=== PATIENT | male | born 1955 | race Caucasian/White ===

== ENCOUNTER 2017-02-16 18:46 | Observation (INO) | payer OTHER ==
[~2017-02-16] VITALS: Ht 177.8 cm; Wt 147.5 kg
[~2017-02-16 18:46] MED LIST: ASPERDRINK81 MG PO; CLONIDINE HCL0.1 MG PO; DIOVAN HCT 3201 EAC1 PO; DIOVAN320 MG PO; IBUPROFEN800 MG PO; MOTRIN800 MG PO; NAPROXEN500 M2 PO; SIMVASTATIN20 MG PO; ULTRAM50 MG PO; VALSARTAN-HCTZ1 EAC3 PO
[2017-02-16] MEDS ORDERED: MELOXICAM15 MG PO (19:20)
[2017-02-16] MEDS ORDERED: ASPIR 8181 M1 PO (19:21)
[2017-02-16 20:38] LABS: EOSINOPHIL (%) 0.3 % (0-5); HEMATOCRIT 43.5 % (38.0-50.0); IMMATURE GRANULOCYTE (%) 0.6 % (0.0-0.7); IMMATURE GRANULOCYTE COUNT 0.1 K/uL; INSTRUMENT ABS NEUTROPHIL CT 10.4 K/uL; LYMPHOCYTE COUNT 0.6 K/uL (1.0-2.8); MCH 29.5 PG (29.0-34.0); MCHC 35.2 G/DL (30.0-36.0); MEAN PLAT.VOLUME 9.4 uM^3 (9.0-12.4); MONOCYTE (%) 7.6 % (3-12); MONOCYTE COUNT 0.9 K/uL (0-0.8); NEUTROPHIL COUNT 10.4 K/uL (1.8-6.4); PLATELET COUNT 196 K/uL (156-360); RBC DIS.WIDTH-CV 12.3 % (11.8-14.6); RBC DIS.WIDTH-SD 37.2 % (39-53); RED BLOOD COUNT 5.18 M/uL (4.00-5.50); WHITE BLOOD COUNT 12.1 K/uL (4.1-10.2)
[2017-02-16 20:47] LABS: CHLORIDE 94 mEq/L (99-109); POTASSIUM 4.5 mEq/L (3.7-5.4); SODIUM 130 mEq/L (136-147)
[2017-02-16 20:48] LABS: MAGNESIUM 2.1 mg/dL (1.3-2.7)
[2017-02-16 20:50] LABS: GLUCOSE 99 mg/dL (70-99)
[2017-02-16 20:51] LABS: ANION GAP 11 MEQ/L (2-14)
[2017-02-16 20:53] LABS: SERUM ETHYL ALCOHOL < 10 mg/dL
[2017-02-16 20:54] LABS: ALKALINE PHOSPHATASE 84 IU/L (3-129); GFR ESTIMATE (CALCULATED) 31 mL/min/
[2017-02-16 20:55] LABS: UREA NITROGEN (BUN) 34 mg/dL (9-23)
[2017-02-16 21:02] LABS: TROP-I INTERPRETATION NEGATIVE; TROPONIN-I 0.12 ng/mL (0.0-0.30)
[2017-02-16 21:03] LABS: CK-MB 26.3 ng/mL (0.0-4.9); CREATINE KINASE 1353 IU/L (1-294)
[2017-02-16 21:07] LABS: TOTAL CK 1353 IU/L (1-294)
[2017-02-16] MEDS ORDERED: PROAIR HFA8.5 GM IH (22:38)
[2017-02-16] MEDS ORDERED: RANITIDINE HCL150 MG PO (22:38)
[2017-02-16] MEDS ORDERED: FLUTICASONE PRO16 GM BOTH NARES (22:39)
[2017-02-17 00:46] LABS: ADD MIUA? YES; BILIRUBIN NEGATIVE; BLOOD MODERATE; COLOR YELLOW ((YELLOW)); GLUCOSE (STRIP) >=500; KETONES 5; LEUKOCYTES NEGATIVE; NITRITE NEGATIVE; PROTEIN (STRIP) 30; SPECIFIC GRAVITY 1.011 (1.000-1.030); UROBILINOGEN 0.2 MG/DL (0.2-1.0)
[2017-02-17 00:51] LABS: BACTERIA RARE /HPF; EPITHELIAL CELLS RARE /HPF; MUCUS TRACE /LPF; RED BLOOD CELLS 0-5 /HPF (0-5); UCUL ADDED? NO; WHITE BLOOD CELLS 0-5 /HPF (0-5)
[2017-02-17 01:27] LABS: URIC ACID 4.8 mg/dL (3.1-9.2)
[2017-02-17 03:59] VITALS: BP 117/62
[2017-02-17 04:47] LABS: TROP-I INTERPRETATION NEGATIVE; TROPONIN-I 0.12 ng/mL (0.0-0.30)
[2017-02-17 05:05] VITALS: BP 117/62
[2017-02-17 06:39] VITALS: BP 109/49
[2017-02-17 08:57] LABS: HEMATOCRIT 38.3 % (38.0-50.0); MCH 29.4 PG (29.0-34.0); MCHC 34.5 G/DL (30.0-36.0); MCV 85.3 FL (86-99); MEAN PLAT.VOLUME 9.3 uM^3 (9.0-12.4); PLATELET COUNT 205 K/uL (156-360); RBC DIS.WIDTH-CV 12.5 % (11.8-14.6); RBC DIS.WIDTH-SD 38.9 % (39-53); RED BLOOD COUNT 4.49 M/uL (4.00-5.50); WHITE BLOOD COUNT 8.7 K/uL (4.1-10.2)
[2017-02-17 09:05] LABS: ANION GAP 7 MEQ/L (2-14); CHLORIDE 96 MEQ/L (99-109); GFR ESTIMATE (CALCULATED) 44 mL/min/; GLUCOSE 127 mg/dL (70-99); POTASSIUM 3.7 MEQ/L (3.7-5.4); SAMPLE HEMOLYSIS CHECK 0; SAMPLE ICTERIC CHECK 0; SAMPLE LIPEMIA CHECK 0; SODIUM 130 MEQ/L (136-147); UREA NITROGEN (BUN) 29 mg/dL (9-23)
[2017-02-17 09:09] LABS: TROP-I INTERPRETATION NEGATIVE; TROPONIN-I 0.12 ng/mL (0.0-0.30)
[2017-02-17 11:20] VITALS: BP 143/56
[2017-02-17 15:19] LABS: AMPHETAMINES QUANT VALUE 0 NG/ML; BARBITUATES QUANT VALUE 0 NG/ML; BENZODIAZEPINES QUANT VALUE 0 NG/ML; BENZODIAZEPINES, URINE SCREEN Negative (200 ng/mL); MARIJUANA QUANT VALUE 0 NG/ML; OPIATES QUANTITATIVE VALUE 0 NG/ML; PHENCYCLIDINE QUANT VALUE 0 NG/ML
[2017-02-17 15:40] VITALS: BP 118/80
[2017-02-17 20:02] VITALS: BP 134/72
[2017-02-18 00:20] VITALS: BP 141/76
[2017-02-18 04:52] VITALS: BP 113/63
[2017-02-18 06:21] LABS: EOSINOPHIL (%) 6.5 % (0-5); EOSINOPHIL COUNT 0.4 K/uL (0-0.3); IMMATURE GRANULOCYTE (%) 0.3 % (0.0-0.7); INSTRUMENT ABS NEUTROPHIL CT 4.3 K/uL; LYMPHOCYTE COUNT 1.2 K/uL (1.0-2.8); MCHC 33.3 G/DL (30.0-36.0); MCV 87.1 FL (86-99); MEAN PLAT.VOLUME 9.3 uM^3 (9.0-12.4); MONOCYTE (%) 12.6 % (3-12); MONOCYTE COUNT 0.9 K/uL (0-0.8); NEUTROPHIL (%) 63.1 % (45-76); NEUTROPHIL COUNT 4.3 K/uL (1.8-6.4); PLATELET COUNT 205 K/uL (156-360); RBC DIS.WIDTH-CV 12.6 % (11.8-14.6); RBC DIS.WIDTH-SD 39.9 % (39-53); RED BLOOD COUNT 4.59 M/uL (4.00-5.50); WHITE BLOOD COUNT 6.7 K/uL (4.1-10.2)
[2017-02-18 07:05] LABS: ALKALINE PHOSPHATASE 61 IU/L (3-129); ANION GAP 8 MEQ/L (2-14); CHLORIDE 101 MEQ/L (99-109); GFR ESTIMATE (CALCULATED) 55 mL/min/; POTASSIUM 4.3 MEQ/L (3.7-5.4); SAMPLE HEMOLYSIS CHECK 0; SAMPLE ICTERIC CHECK 0; SAMPLE LIPEMIA CHECK 0; TOTAL BILIRUBIN 0.6 MG/DL (0.0-1.0); UREA NITROGEN (BUN) 20 mg/dL (9-23)
[2017-02-18 07:08] LABS: CREATINE KINASE 1192 IU/L (1-294); GLUCOSE 87 mg/dL (70-99); SODIUM 137 MEQ/L (136-147)
[2017-02-18 07:30] VITALS: BP 121/69
[2017-02-18 11:59] VITALS: BP 127/91
== END 2017-02-18 12:53 | disposition home or self-care (01) ==
LOC: EME 18:46 → 5EAST 02-17 00:26 → EDOF 02-17 00:26 → 5EAST 02-17 00:26 → ENRESERV 02-17 00:27 → 5EAST 02-17 02:04 → ENPENDDIS 02-18 → 5EAST 02-18 11:15
PROVIDERS: Emergency Medicine; Hospitalist
DX: N17.9 Acute kidney failure, unspecified (principal); M62.82 Rhabdomyolysis; I10 Essential (primary) hypertension; E78.5 Hyperlipidemia, unspecified; K21.9 Gastro-esophageal reflux disease without esophagitis; Z86.69 Personal history of other diseases of the nervous system and sense organs; E86.0 Dehydration; F79 Unspecified intellectual disabilities; E87.1 Hypo-osmolality and hyponatremia; E66.9 Obesity, unspecified; Z68.42 Body mass index [BMI] 45.0-49.9, adult; Z82.49 Family history of ischemic heart disease and other diseases of the circulatory system; Z83.3 Family history of diabetes mellitus; Z82.3 Family history of stroke
CPT/HCPCS: 70450; 71020; 74176; 80048; 80053; 80306 90; 81003; 82436; 82550; 82553; 83735; 84133; 84300; 84443; 84484; 84550; 85025; 85027; 93005; 99202; 99281; 99284; G0378; G0480; J1644; J7030

== ENCOUNTER 2017-08-21 16:53 | Inpatient (IN) | payer OTHER ==
[~2017-08-21] VITALS: Ht 170.2 cm; Wt 154.3 kg
[~2017-08-21 16:53] MED LIST changes: +ASPIR 8181 M1 PO; +FLUTICASONE PRO16 GM BOTH NARES; +MELOXICAM15 MG PO; +PROAIR HFA8.5 GM IH; +RANITIDINE HCL150 MG PO
[2017-08-21 17:58] LABS: BASOPHIL (%) 0.4 % (0-1); EOSINOPHIL (%) 4.3 % (0-5); EOSINOPHIL COUNT 0.4 K/uL (0-0.3); HEMATOCRIT 39.9 % (38.0-50.0); HEMOGLOBIN 13.7 G/DL (12.5-16.6); IMMATURE GRANULOCYTE (%) 0.4 % (0.0-0.7); LYMPHOCYTE (%) 13.1 % (15-42); LYMPHOCYTE COUNT 1.2 K/uL (1.0-2.8); MCH 29.3 PG (29.0-34.0); MCHC 34.3 G/DL (30.0-36.0); MCV 85.3 FL (86-99); MONOCYTE (%) 10.7 % (3-12); NEUTROPHIL (%) 71.1 % (45-76); NEUTROPHIL COUNT 6.7 K/uL (1.8-6.4); PLATELET COUNT 216 K/uL (156-360); RBC DIS.WIDTH-CV 12.6 % (11.8-14.6); RBC DIS.WIDTH-SD 39.1 % (39-53); RED BLOOD COUNT 4.68 M/uL (4.00-5.50); WHITE BLOOD COUNT 9.4 K/uL (4.1-10.2)
[2017-08-21 18:12] LABS: PTT 33.4 SEC (25-37)
[2017-08-21 18:14] LABS: CHLORIDE 83 mEq/L (99-109); POTASSIUM 4.8 mEq/L (3.7-5.4); SODIUM 124 mEq/L (136-147)
[2017-08-21 18:16] LABS: GLUCOSE 99 mg/dL (70-99)
[2017-08-21 18:20] LABS: CREATININE 0.8 mg/dL (0.6-1.3); GFR ESTIMATE (CALCULATED) > 59 mL/min/ (58.99-99999)
[2017-08-21 18:21] LABS: UREA NITROGEN (BUN) 18 mg/dL (9-23)
[2017-08-21 18:22] LABS: TROP-I INTERPRETATION NEGATIVE; TROPONIN-I 0.13 ng/mL (0.0-0.30)
[2017-08-21] MEDS ORDERED: ZOCOR20 MG PO (18:41)
[2017-08-21] MEDS ORDERED: DIOVAN HCT 31 TABLE1 PO (18:41)
[2017-08-21] MEDS ORDERED: FLEXERIL5 MG PO (18:41)
[2017-08-21 20:30] VITALS: BP 160/73
[2017-08-21 21:36] LABS: MAGNESIUM 1.7 mg/dL (1.3-2.7)
[2017-08-22 04:03] VITALS: BP 128/74
[2017-08-22 06:32] LABS: HEMATOCRIT 43.7 % (38.0-50.0); MCH 29.9 PG (29.0-34.0); MCHC 34.3 G/DL (30.0-36.0); MCV 87.2 FL (86-99); PLATELET COUNT 236 K/uL (156-360); RBC DIS.WIDTH-CV 12.8 % (11.8-14.6); RBC DIS.WIDTH-SD 40.7 % (39-53); RED BLOOD COUNT 5.01 M/uL (4.00-5.50); WHITE BLOOD COUNT 7.7 K/uL (4.1-10.2)
[2017-08-22 06:33] LABS: CHLORIDE 86 MEQ/L (99-109); CREATININE 0.7 MG/DL (0.6-1.3); GFR ESTIMATE (CALCULATED) > 59 mL/min/ (58.99-99999); GLUCOSE 141 mg/dL (70-99); POTASSIUM 4.8 MEQ/L (3.7-5.4); SODIUM 127 MEQ/L (136-147); UREA NITROGEN (BUN) 15 mg/dL (9-23)
[2017-08-22 07:51] VITALS: BP 143/92
[2017-08-22 11:47] VITALS: BP 151/87
[2017-08-22 16:44] VITALS: BP 148/76
[2017-08-22 19:50] VITALS: BP 123/63
[2017-08-22 23:12] VITALS: BP 146/69
[2017-08-23 03:37] VITALS: BP 120/61
[2017-08-23 07:01] LABS: BASOPHIL (%) 0.1 % (0-1); EOSINOPHIL (%) 0 % (0-5); HEMATOCRIT 43.8 % (38.0-50.0); IMMATURE GRANULOCYTE (%) 0.6 % (0.0-0.7); LYMPHOCYTE (%) 3.2 % (15-42); LYMPHOCYTE COUNT 0.4 K/uL (1.0-2.8); MCH 29.1 PG (29.0-34.0); MCV 91.1 FL (86-99); MONOCYTE (%) 7.1 % (3-12); MONOCYTE COUNT 0.8 K/uL (0-0.8); NEUTROPHIL COUNT 10.2 K/uL (1.8-6.4); PLATELET COUNT 231 K/uL (156-360); RBC DIS.WIDTH-CV 13.2 % (11.8-14.6); RBC DIS.WIDTH-SD 43.9 % (39-53); RED BLOOD COUNT 4.81 M/uL (4.00-5.50); WHITE BLOOD COUNT 11.4 K/uL (4.1-10.2)
[2017-08-23 07:15] VITALS: BP 140/78
[2017-08-23 07:59] LABS: CHLORIDE 92 MEQ/L (99-109); CREATININE 0.8 MG/DL (0.6-1.3); GFR ESTIMATE (CALCULATED) > 59 mL/min/ (58.99-99999); GLUCOSE 123 mg/dL (70-99); MAGNESIUM 2.2 mg/dl (1.3-2.7); POTASSIUM 5.1 MEQ/L (3.7-5.4); UREA NITROGEN (BUN) 17 mg/dL (9-23)
[2017-08-23 08:00] LABS: SODIUM 137 MEQ/L (136-147)
[2017-08-23 11:42] VITALS: BP 126/85
[2017-08-23 16:22] VITALS: BP 147/84
[2017-08-23 20:25] VITALS: BP 154/81
[2017-08-23 23:22] VITALS: BP 134/75
[2017-08-24 04:33] VITALS: BP 138/75
[2017-08-24 06:06] LABS: BASOPHIL (%) 0.1 % (0-1); EOSINOPHIL (%) 0 % (0-5); HEMATOCRIT 44.8 % (38.0-50.0); HEMOGLOBIN 14.1 G/DL (12.5-16.6); IMMATURE GRANULOCYTE (%) 1.5 % (0.0-0.7); LYMPHOCYTE COUNT 0.4 K/uL (1.0-2.8); MCH 29.3 PG (29.0-34.0); MCHC 31.5 G/DL (30.0-36.0); MCV 92.9 FL (86-99); MONOCYTE (%) 4.4 % (3-12); MONOCYTE COUNT 0.5 K/uL (0-0.8); NEUTROPHIL COUNT 10.6 K/uL (1.8-6.4); PLATELET COUNT 204 K/uL (156-360); RBC DIS.WIDTH-CV 13.3 % (11.8-14.6); RBC DIS.WIDTH-SD 45.1 % (39-53); RED BLOOD COUNT 4.82 M/uL (4.00-5.50); WHITE BLOOD COUNT 11.6 K/uL (4.1-10.2)
[2017-08-24 06:24] LABS: CHLORIDE 90 MEQ/L (99-109); CREATININE 0.7 MG/DL (0.6-1.3); GFR ESTIMATE (CALCULATED) > 59 mL/min/ (58.99-99999); GLUCOSE 120 mg/dL (70-99); POTASSIUM 5.6 MEQ/L (3.7-5.4); SODIUM 133 MEQ/L (136-147); UREA NITROGEN (BUN) 18 mg/dL (9-23)
[2017-08-24 08:02] VITALS: BP 124/67
[2017-08-24 11:54] VITALS: BP 157/78
[2017-08-24 16:32] VITALS: BP 148/90
[2017-08-24 19:45] VITALS: BP 158/80
[2017-08-24 23:43] VITALS: BP 160/78
[2017-08-25] VITALS (12 sets, daily range): BP systolic 111–154; BP diastolic 67–80
[2017-08-25 07:01] LABS: CHLORIDE 87 MEQ/L (99-109); CREATININE 0.8 MG/DL (0.6-1.3); GFR ESTIMATE (CALCULATED) > 59 mL/min/ (58.99-99999); GLUCOSE 131 mg/dL (70-99); POTASSIUM 4.8 MEQ/L (3.7-5.4); SODIUM 136 MEQ/L (136-147); UREA NITROGEN (BUN) 22 mg/dL (9-23)
[2017-08-25 07:02] LABS: CARBON DIOXIDE (BICARBONATE) > 40.0 MEQ/L (20-31)
[2017-08-25 07:42] LABS: BICARBONATE 47.1 mEq/L (22-26); CARBOXY HGB 2.9 % (0-5); PCO2 110 mm Hg (35-45); PO2 62 mm Hg (80-100); pH 7.24 (7.35-7.45)
[2017-08-25 07:43] LABS: COMMENTS - BLOOD GASES A+C+; DEVICE VENTURI; FI02 40 %; O2 FLOW 8 L/MIN; SITE RR; TOTAL RESP RATE 14 resp/min
[2017-08-25 14:30] LABS: BASE EXCESS 15.1 mEq/L (-3 to +3); BICARBONATE 49.1 mEq/L (22-26); CARBOXY HGB 2.1 % (0-5); COMMENTS - BLOOD GASES A+C+; METHEMOGLOBIN 1.4 % (0-1.5); PCO2 120 mm Hg (35-45); PO2 297 mm Hg (80-100); SITE RR
[2017-08-25 14:31] LABS: DEVICE 840 MASK; FI02 40 %; MECHANICAL RATE 6 resp/min; MODE SIMV; PEEP 5 CM/H20; PRES. SUPPORT 10 CM/H2O; TIDAL VOLUME 500 ML; TOTAL RESP RATE 18 resp/min; pH 7.22 (7.35-7.45)
[2017-08-25 16:21] LABS: BASE EXCESS 16.4 mEq/L (-3 to +3); BICARBONATE 43.8 mEq/L (22-26); CARBOXY HGB 2.1 % (0-5); COMMENTS - BLOOD GASES A+C+; METHEMOGLOBIN 1.3 % (0-1.5); PCO2 63 mm Hg (35-45); PO2 98 mm Hg (80-100); SITE RR; pH 7.45 (7.35-7.45)
[2017-08-25 16:22] LABS: DEVICE VENT; FI02 100 %; MECHANICAL RATE 20 resp/min; MODE A/C; PEEP 5 CM/H20; TIDAL VOLUME 450 ML; TOTAL RESP RATE 20 resp/min
[2017-08-26] VITALS (24 sets, daily range): BP systolic 116–145; BP diastolic 59–85
[2017-08-26 05:58] LABS: BASOPHIL (%) 0.1 % (0-1); EOSINOPHIL (%) 0 % (0-5); HEMOGLOBIN 13.8 G/DL (12.5-16.6); IMMATURE GRANULOCYTE (%) 0.6 % (0.0-0.7); LYMPHOCYTE (%) 4.3 % (15-42); LYMPHOCYTE COUNT 0.4 K/uL (1.0-2.8); MCH 28.2 PG (29.0-34.0); MCHC 32.1 G/DL (30.0-36.0); MONOCYTE COUNT 0.9 K/uL (0-0.8); NEUTROPHIL COUNT 7.3 K/uL (1.8-6.4); PLATELET COUNT 201 K/uL (156-360); RBC DIS.WIDTH-CV 12.3 % (11.8-14.6); RBC DIS.WIDTH-SD 39.8 % (39-53); RED BLOOD COUNT 4.89 M/uL (4.00-5.50); WHITE BLOOD COUNT 8.6 K/uL (4.1-10.2)
[2017-08-26 05:59] LABS: MCV 87.9 FL (86-99)
[2017-08-26 06:20] LABS: ALBUMIN 3.5 G/DL (3.2-4.8); ALKALINE PHOSPHATASE 50 IU/L (3-129); ALT (GPT) 23 IU/L (3-49); AST (GOT) 14 IU/L (2-34); CHLORIDE 89 MEQ/L (99-109); CREATININE 0.8 MG/DL (0.6-1.3); GFR ESTIMATE (CALCULATED) > 59 mL/min/ (58.99-99999); GLUCOSE 154 mg/dL (70-99); MAGNESIUM 1.9 mg/dl (1.3-2.7); PHOSPHORUS 2.6 mg/dL (2.5-4.9); POTASSIUM 3.9 MEQ/L (3.7-5.4); SODIUM 132 MEQ/L (136-147); TOTAL PROTEIN 5.3 G/DL (6.4-8.3); UREA NITROGEN (BUN) 27 mg/dL (9-23)
[2017-08-26 13:16] LABS: BASE EXCESS 9.3 mEq/L (-3 to +3); BICARBONATE 34.8 mEq/L (22-26); CARBOXY HGB 1.7 % (0-5); COMMENTS - BLOOD GASES A+C+; DEVICE VENT; FI02 40 %; METHEMOGLOBIN 1.7 % (0-1.5); PCO2 49 mm Hg (35-45); PO2 79 mm Hg (80-100); SITE LR; TOTAL RESP RATE 20 resp/min; pH 7.46 (7.35-7.45)
[2017-08-26 13:17] LABS: PEEP 5 CM/H20; PRES. SUPPORT 10 CM/H2O
[2017-08-27] VITALS (17 sets, daily range): BP systolic 112–167; BP diastolic 53–113
[2017-08-27 07:46] LABS: BASOPHIL (%) 0.1 % (0-1); EOSINOPHIL (%) 0 % (0-5); HEMATOCRIT 45.3 % (38.0-50.0); HEMOGLOBIN 14.7 G/DL (12.5-16.6); IMMATURE GRANULOCYTE (%) 0.7 % (0.0-0.7); LYMPHOCYTE (%) 2.7 % (15-42); LYMPHOCYTE COUNT 0.3 K/uL (1.0-2.8); MCH 28.8 PG (29.0-34.0); MCHC 32.5 G/DL (30.0-36.0); MCV 88.6 FL (86-99); MONOCYTE (%) 9.8 % (3-12); NEUTROPHIL (%) 86.7 % (45-76); NEUTROPHIL COUNT 9.2 K/uL (1.8-6.4); NRBC (%) 0.2 /100 WBC (0-0); PLATELET COUNT 220 K/uL (156-360); RBC DIS.WIDTH-CV 12.7 % (11.8-14.6); RBC DIS.WIDTH-SD 41.6 % (39-53); RED BLOOD COUNT 5.11 M/uL (4.00-5.50); WHITE BLOOD COUNT 10.6 K/uL (4.1-10.2)
[2017-08-27 08:17] LABS: CREATININE 0.8 MG/DL (0.6-1.3); GFR ESTIMATE (CALCULATED) > 59 mL/min/ (58.99-99999); GLUCOSE 122 mg/dL (70-99); POTASSIUM 4.1 MEQ/L (3.7-5.4); SODIUM 137 MEQ/L (136-147); UREA NITROGEN (BUN) 25 mg/dL (9-23)
[2017-08-27 08:26] LABS: CHLORIDE 100 MEQ/L (99-109); MAGNESIUM 2.2 mg/dl (1.3-2.7)
[2017-08-27 10:57] LABS: BASE EXCESS 6.3 mEq/L (-3 to +3); BICARBONATE 32.8 mEq/L (22-26); DEVICE TPIECE; FI02 30 %; METHEMOGLOBIN 1.3 % (0-1.5); PCO2 53 mm Hg (35-45); PO2 144 mm Hg (80-100); SITE LR
[2017-08-27 10:58] LABS: TOTAL RESP RATE 22 resp/min
[2017-08-28] VITALS (11 sets, daily range): BP systolic 135–181; BP diastolic 74–157
[2017-08-28 05:42] LABS: BASOPHIL (%) 0.1 % (0-1); EOSINOPHIL (%) 0 % (0-5); HEMATOCRIT 45.7 % (38.0-50.0); HEMOGLOBIN 14.2 G/DL (12.5-16.6); IMMATURE GRANULOCYTE (%) 0.7 % (0.0-0.7); LYMPHOCYTE (%) 2.4 % (15-42); LYMPHOCYTE COUNT 0.2 K/uL (1.0-2.8); MCH 28.3 PG (29.0-34.0); MCHC 31.1 G/DL (30.0-36.0); MCV 91.2 FL (86-99); MONOCYTE (%) 6.1 % (3-12); MONOCYTE COUNT 0.5 K/uL (0-0.8); NEUTROPHIL (%) 90.7 % (45-76); NEUTROPHIL COUNT 7.9 K/uL (1.8-6.4); PLATELET COUNT 192 K/uL (156-360); RBC DIS.WIDTH-CV 13.2 % (11.8-14.6); RBC DIS.WIDTH-SD 44.1 % (39-53); RED BLOOD COUNT 5.01 M/uL (4.00-5.50); WHITE BLOOD COUNT 8.7 K/uL (4.1-10.2)
[2017-08-28 06:08] LABS: CHLORIDE 100 MEQ/L (99-109); CREATININE 0.8 MG/DL (0.6-1.3); GFR ESTIMATE (CALCULATED) > 59 mL/min/ (58.99-99999); GLUCOSE 124 mg/dL (70-99); MAGNESIUM 2.3 mg/dl (1.3-2.7); POTASSIUM 4.2 MEQ/L (3.7-5.4); SODIUM 139 MEQ/L (136-147); UREA NITROGEN (BUN) 25 mg/dL (9-23)
[2017-08-29 07:08] LABS: BASOPHIL (%) 0.1 % (0-1); EOSINOPHIL (%) 0 % (0-5); HEMOGLOBIN 14.2 G/DL (12.5-16.6); IMMATURE GRANULOCYTE (%) 1.1 % (0.0-0.7); LYMPHOCYTE (%) 3.4 % (15-42); LYMPHOCYTE COUNT 0.3 K/uL (1.0-2.8); MCH 28.3 PG (29.0-34.0); MCHC 30.9 G/DL (30.0-36.0); MCV 91.8 FL (86-99); MONOCYTE (%) 6.4 % (3-12); MONOCYTE COUNT 0.6 K/uL (0-0.8); NEUTROPHIL COUNT 7.9 K/uL (1.8-6.4); PLATELET COUNT 189 K/uL (156-360); RBC DIS.WIDTH-CV 12.9 % (11.8-14.6); RED BLOOD COUNT 5.01 M/uL (4.00-5.50); WHITE BLOOD COUNT 8.9 K/uL (4.1-10.2)
[2017-08-29 07:23] VITALS: BP 169/92
[2017-08-29 07:35] LABS: ALBUMIN 3.8 G/DL (3.2-4.8); ALKALINE PHOSPHATASE 44 IU/L (3-129); ALT (GPT) 43 IU/L (3-49); AST (GOT) 20 IU/L (2-34); CHLORIDE 97 MEQ/L (99-109); CREATININE 0.8 MG/DL (0.6-1.3); GFR ESTIMATE (CALCULATED) > 59 mL/min/ (58.99-99999); GLUCOSE 144 mg/dL (70-99); POTASSIUM 4.9 MEQ/L (3.7-5.4); SODIUM 138 MEQ/L (136-147); TOTAL BILIRUBIN 0.8 MG/DL (0.0-1.0); TOTAL PROTEIN 5.4 G/DL (6.4-8.3); UREA NITROGEN (BUN) 22 mg/dL (9-23)
[2017-08-29 15:47] VITALS: BP 142/79
[2017-08-29 23:46] VITALS: BP 154/87
[2017-08-30 01:27] VITALS: BP 140/80
[2017-08-30 07:18] VITALS: BP 161/87
[2017-08-30] MEDS ORDERED: LEVAQUIN750 MG PO (09:54)
[2017-08-30] MEDS ORDERED: PREDNISONE10 MG PO (09:56)
[2017-08-30] MEDS ORDERED: DUONEB 2.5-0.5 M3 ML AEROSOL (13:43)
== END 2017-08-30 15:03 | disposition home health service (06) | DRG 208 ==
LOC: EME 16:53 → EDOF 19:42 → 5WEST 19:42 → ENRESERV 19:44 → 5WEST 20:31 → 4WEST 08-22 10:23 → 5WEST 08-25 07:58 → ENRESERV 08-25 08:08 → 4WEST 08-25 08:40 → ENRESERV 08-28 → 4WEST 08-28 08:16 → ENRESERV 08-28 11:22 → 5EAST 08-28 16:37 → ENPENDDIS 08-30 → 5EAST 08-30 15:03
PROVIDERS: Emergency Medicine; Family Medicine; Internal Medicine; Physician Assistant; Specialist; Student in an Organized Health Care Education/Training Program
DX: J96.01 Acute respiratory failure with hypoxia (principal); J45.901 Unspecified asthma with (acute) exacerbation; J20.9 Acute bronchitis, unspecified; J15.9 Unspecified bacterial pneumonia; J96.02 Acute respiratory failure with hypercapnia; E87.5 Hyperkalemia; J98.6 Disorders of diaphragm; E87.1 Hypo-osmolality and hyponatremia; E86.0 Dehydration; J98.11 Atelectasis; G47.33 Obstructive sleep apnea (adult) (pediatric); I10 Essential (primary) hypertension; E78.5 Hyperlipidemia, unspecified; K21.9 Gastro-esophageal reflux disease without esophagitis; F79 Unspecified intellectual disabilities; I45.10 Unspecified right bundle-branch block; J30.2 Other seasonal allergic rhinitis; E66.9 Obesity, unspecified; Z68.43 Body mass index [BMI] 50.0-59.9, adult; Z79.82 Long term (current) use of aspirin; Z82.3 Family history of stroke; Z82.49 Family history of ischemic heart disease and other diseases of the circulatory system; Z83.3 Family history of diabetes mellitus
CPT/HCPCS: 36600; 71045; 71275; 80048; 80053; 80202; 81003; 82803; 83735; 83880; 84100; 84443; 84484; 85025; 85027; 85610; 85730; 87040; 87070; 87205; 87641; 93005; 93306; 93970; 94002; 94003; 94640; 94640 76; 94660; 94760; 94799; 99202; 99281; 99285; G0378; J1644; J1650; J1956; J2250; J2543; J2704; J2930; J3370; J3475; J7030; J7050; J7120; J7512

== ENCOUNTER 2017-09-17 17:17 | Emergency (ER) | payer OTHER ==
[~2017-09-17] VITALS: Ht 170.2 cm; Wt 150.3 kg
[~2017-09-17 17:17] MED LIST changes: +DIOVAN HCT 31 TABLE1 PO; +DUONEB 2.5-0.5 M3 ML AEROSOL; +FLEXERIL5 MG PO; +LEVAQUIN750 MG PO; +PREDNISONE10 MG PO; +ZOCOR20 MG PO
[2017-09-17 20:31] VITALS: BP 115/78
== END 2017-09-17 20:32 | disposition home or self-care (01) ==
LOC: EME 17:17
DX: M79.605 Pain in left leg (principal); M25.462 Effusion, left knee; I10 Essential (primary) hypertension; J45.909 Unspecified asthma, uncomplicated; Z87.01 Personal history of pneumonia (recurrent); Z79.82 Long term (current) use of aspirin
CPT/HCPCS: 73564; 73590; 73610; 93971; 99281; 99283

== ENCOUNTER 2017-11-07 14:55 | Emergency (ER) | payer OTHER ==
[~2017-11-07] VITALS: Ht 185.4 cm; Wt 143.9 kg
[2017-11-07 15:37] LABS: HEMATOCRIT 42.1 % (38.0-50.0); HEMOGLOBIN 14.2 G/DL (12.5-16.6); MCH 29.1 PG (29.0-34.0); MCHC 33.7 G/DL (30.0-36.0); MCV 86.3 FL (86-99); PLATELET COUNT 213 K/uL (156-360); RBC DIS.WIDTH-CV 13.2 % (11.8-14.6); RBC DIS.WIDTH-SD 40.9 % (39-53); RED BLOOD COUNT 4.88 M/uL (4.00-5.50); WHITE BLOOD COUNT 10.3 K/uL (4.1-10.2)
[2017-11-07 15:44] LABS: ALBUMIN 4.4 g/dL (3.2-4.8)
[2017-11-07 15:45] LABS: CHLORIDE 97 mEq/L (99-109); POTASSIUM 4.5 mEq/L (3.7-5.4); SODIUM 134 mEq/L (136-147)
[2017-11-07 15:47] LABS: GLUCOSE 106 mg/dL (70-99)
[2017-11-07 15:49] LABS: TOTAL BILIRUBIN 0.5 mg/dL (0.0-1.0)
[2017-11-07 15:50] LABS: ALKALINE PHOSPHATASE 92 IU/L (3-129)
[2017-11-07 15:51] LABS: GFR ESTIMATE (CALCULATED) > 59 mL/min/ (58.99-99999)
[2017-11-07 15:52] LABS: AST (GOT) 20 IU/L (2-34); UREA NITROGEN (BUN) 32 mg/dL (9-23)
[2017-11-07 15:53] LABS: ALT (GPT) 20 IU/L (3-49)
[2017-11-07] MEDS ORDERED: NORCO 5/3251 TABLET PO (18:00)
[2017-11-07] MEDS ORDERED: MOTRIN800 MG PO (18:00)
[2017-11-07 18:19] VITALS: BP 122/76
== END 2017-11-07 18:21 | disposition home or self-care (01) ==
LOC: RME 14:55 → EME 14:55 → RME 18:21
PROVIDERS: Nurse Practitioner Family
DX: S12.000A Unspecified displaced fracture of first cervical vertebra, initial encounter for closed fracture (principal); S80.02XA Contusion of left knee, initial encounter; S00.81XA Abrasion of other part of head, initial encounter; W01.0XXA Fall on same level from slipping, tripping and stumbling without subsequent striking against object, initial encounter; I10 Essential (primary) hypertension; J45.909 Unspecified asthma, uncomplicated; Y92.22 Religious institution as the place of occurrence of the external cause
CPT/HCPCS: 70450; 70486; 72125; 73564; 80053; 85027; 99281; 99284

== ENCOUNTER 2017-11-29 11:15 | Inpatient (IN) | payer OTHER ==
[~2017-11-29] VITALS: Ht 182.9 cm; Wt 146.2 kg
[~2017-11-29 11:15] MED LIST changes: +NORCO 5/3251 TABLET PO
[2017-11-29 12:16] LABS: COMMENTS - BLOOD GASES A+C+; DEVICE NC; O2 FLOW 2 L/MIN; PCO2 80 mm Hg (35-45); PO2 73 mm Hg (80-100); SITE RR; pH 7.31 (7.35-7.45)
[2017-11-29 12:17] LABS: BASE EXCESS 10.1 mEq/L (-3 to +3); BICARBONATE 39.9 mEq/L (22-26); CARBOXY HGB 2.4 % (0-5); METHEMOGLOBIN 0.9 % (0-1.5)
[2017-11-29 12:36] LABS: HEMATOCRIT 39.2 % (38.0-50.0); HEMOGLOBIN 13.7 G/DL (12.5-16.6); MCH 29.4 PG (29.0-34.0); MCHC 34.9 G/DL (30.0-36.0); MCV 84.1 FL (86-99); PLATELET COUNT 202 K/uL (156-360); RBC DIS.WIDTH-CV 13.2 % (11.8-14.6); RBC DIS.WIDTH-SD 40.4 % (39-53); RED BLOOD COUNT 4.66 M/uL (4.00-5.50); WHITE BLOOD COUNT 11.2 K/uL (4.1-10.2)
[2017-11-29 12:52] LABS: CHLORIDE 79 mEq/L (99-109); POTASSIUM 4.3 mEq/L (3.7-5.4); SODIUM 121 mEq/L (136-147)
[2017-11-29 12:53] LABS: GLUCOSE 98 mg/dL (70-99)
[2017-11-29 12:57] LABS: CREATININE 0.6 mg/dL (0.6-1.3); GFR ESTIMATE (CALCULATED) > 59 mL/min/ (58.99-99999)
[2017-11-29 12:58] LABS: UREA NITROGEN (BUN) 14 mg/dL (9-23)
[2017-11-29 13:01] LABS: TROP-I INTERPRETATION NEGATIVE; TROPONIN-I 0.09 ng/mL (0.0-0.30)
[2017-11-29 13:52] LABS: COMMENTS - BLOOD GASES A+C+; O2 FLOW 5 L/MIN; SITE RR
[2017-11-29 13:53] LABS: BASE EXCESS 10.1 mEq/L (-3 to +3); BICARBONATE 40.4 mEq/L (22-26); CARBOXY HGB 2.2 % (0-5); DEVICE BIPAP 20/10; METHEMOGLOBIN 0.9 % (0-1.5); PCO2 86 mm Hg (35-45); PO2 63 mm Hg (80-100)
[2017-11-29 13:54] LABS: pH 7.28 (7.35-7.45)
[2017-11-29 16:40] VITALS: BP 145/76
[2017-11-29 17:03] VITALS: BP 145/76
[2017-11-29 19:00] VITALS: BP 157/101
[2017-11-29 19:20] LABS: SITE RR
[2017-11-29 19:21] LABS: BASE EXCESS 14.4 mEq/L (-3 to +3); BICARBONATE 43.4 mEq/L (22-26); CARBOXY HGB 2.1 % (0-5); COMMENTS - BLOOD GASES C+A+; DEVICE NC; METHEMOGLOBIN 0.7 % (0-1.5); O2 FLOW 2 L/MIN; O2 SATURATION (CALCULATED) 96.1 % (95-99); PCO2 75 mm Hg (35-45); PO2 70 mm Hg (80-100); TOTAL RESP RATE 16 resp/min; pH 7.37 (7.35-7.45)
[2017-11-29 20:00] VITALS: BP 179/100
[2017-11-29 22:00] VITALS: BP 121/68
[2017-11-29 23:00] VITALS: BP 142/75
[2017-11-30] VITALS (18 sets, daily range): BP systolic 103–159; BP diastolic 60–90
[2017-11-30 06:34] LABS: CHLORIDE 84 MEQ/L (99-109); CREATININE 0.6 MG/DL (0.6-1.3); GFR ESTIMATE (CALCULATED) > 59 mL/min/ (58.99-99999); GLUCOSE 118 mg/dL (70-99); POTASSIUM 4.4 MEQ/L (3.7-5.4); UREA NITROGEN (BUN) 11 mg/dL (9-23)
[2017-11-30 06:37] LABS: SODIUM 128 MEQ/L (136-147)
[2017-11-30 09:42] LABS: BASE EXCESS 13.6 mEq/L (-3 to +3); BICARBONATE 41.2 mEq/L (22-26); CARBOXY HGB 1.6 % (0-5); PCO2 62 mm Hg (35-45); PO2 57 mm Hg (80-100); pH 7.43 (7.35-7.45)
[2017-11-30 09:43] LABS: COMMENTS - BLOOD GASES NAC+; DEVICE CANNULA; O2 FLOW 2 L/MIN; SITE RR
[2017-12-01] VITALS (8 sets, daily range): BP systolic 110–142; BP diastolic 59–92
[2017-12-01 09:29] LABS: HEMATOCRIT 41.8 % (38.0-50.0); MCHC 33.5 G/DL (30.0-36.0); MCV 86.5 FL (86-99); PLATELET COUNT 253 K/uL (156-360); RBC DIS.WIDTH-CV 13.6 % (11.8-14.6); RED BLOOD COUNT 4.83 M/uL (4.00-5.50); WHITE BLOOD COUNT 12.3 K/uL (4.1-10.2)
[2017-12-01 09:51] LABS: CHLORIDE 84 MEQ/L (99-109); CREATININE 0.7 MG/DL (0.6-1.3); GFR ESTIMATE (CALCULATED) > 59 mL/min/ (58.99-99999); GLUCOSE 120 mg/dL (70-99); POTASSIUM 4.3 MEQ/L (3.7-5.4); SODIUM 131 MEQ/L (136-147); UREA NITROGEN (BUN) 14 mg/dL (9-23)
[2017-12-02] VITALS: BP 140/76
[2017-12-02 03:37] VITALS: BP 142/79
[2017-12-02 07:15] VITALS: BP 113/66
[2017-12-02 11:00] VITALS: BP 119/63
[2017-12-02] MEDS ORDERED: PRAVASTATIN SOD40 MG PO (11:28)
[2017-12-02] MEDS ORDERED: DUONEB 2.5-0.5 M3 ML AEROSOL (11:28)
[2017-12-02] MEDS ORDERED: SPIRIVA RESPIMAT4 GM IH (11:28)
[2017-12-02] MEDS ORDERED: PREDNISONE10 MG PO (11:30)
[2017-12-02] MEDS ORDERED: AZITHROMYCIN250 MG PO (11:30)
[2017-12-02] MEDS ORDERED: ADVAIR 100/501 DISK IH (11:31)
== END 2017-12-02 17:48 | disposition home health service (06) | DRG 189 ==
LOC: EME 11:15 → EDOF 15:10 → ENRESERV 15:10 → 4WEST 15:10 → ENRESERV 15:13 → 4WEST 16:31 → ENRESERV 12-01 06:19 → CANRESERV 12-01 06:19 → 4WEST 12-01 12:01 → ENRESERV 12-01 13:31 → 5EAST 12-01 15:15
PROVIDERS: Emergency Medicine; Hospitalist; Internal Medicine Critical Care Medicine
DX: J96.21 Acute and chronic respiratory failure with hypoxia (principal); J96.22 Acute and chronic respiratory failure with hypercapnia; J45.31 Mild persistent asthma with (acute) exacerbation; Z99.81 Dependence on supplemental oxygen; Z68.41 Body mass index [BMI] 40.0-44.9, adult; E66.2 Morbid (severe) obesity with alveolar hypoventilation; E87.1 Hypo-osmolality and hyponatremia; F79 Unspecified intellectual disabilities; I10 Essential (primary) hypertension; E78.5 Hyperlipidemia, unspecified; S12.000D Unspecified displaced fracture of first cervical vertebra, subsequent encounter for fracture with routine healing; W19.XXXD Unspecified fall, subsequent encounter; G47.10 Hypersomnia, unspecified; J20.9 Acute bronchitis, unspecified; E87.2 Acidosis
CPT/HCPCS: 36600; 70450; 71046; 80048; 84484; 85027; 87641; 93005; 94640; 94660; 94760; 94799; 99281; 99285; A6214; J1650; J2930; J7512

== ENCOUNTER 2017-12-24 21:16 | Emergency (ER) | payer OTHER ==
[~2017-12-24] VITALS: Ht 185.4 cm; Wt 143.6 kg
[~2017-12-24 21:16] MED LIST changes: +ADVAIR 100/501 DISK IH; +AZITHROMYCIN250 MG PO; +PRAVASTATIN SOD40 MG PO; +SPIRIVA RESPIMAT4 GM IH
[2017-12-24] MEDS ORDERED: NORCO 5/3251 TABLET PO (23:33)
[2017-12-24] MEDS ORDERED: ROBAXIN750 MG PO (23:33)
[2017-12-24 23:54] VITALS: BP 146/99
== END 2017-12-25 | disposition home or self-care (01) ==
LOC: EME 21:16
DX: M54.42 Lumbago with sciatica, left side (principal)
CPT/HCPCS: 99281; 99283